=== PATIENT | female | born 1955 | race Caucasian/White ===

== ENCOUNTER 2023-11-29 14:38 | Outpatient (AMB) | payer OTHER, SELFPAY ==
--- NOTE | 2023-11-29 14:50 | HO.NEPHOV ---
HPI HPI Comments History of Present Illness Details I had the privilege of seeing Shannan in follow-up of her chronic kidney disease and hypertension. She had lost some weight but gained it back during holiday season. Her blood pressure is at goal at home. She does not have any urinary symptoms, pedal edema, nausea vomiting, diarrhea, shortness of breath or orthostatic symptoms. She does not take any nonsteroidal anti-inflammatories. She is trying to lose some weight by dieting. She had no recent medication changes. All other systems have been reviewed and were negative. [facility] Medical History (Updated 11/29/23 @ 15:48 by Doroteo Reyes MD) Chronic kidney disease, stage 3a Hypertension Surgical History (Updated 11/29/23 @ 14:57 by Chanell Alvarado MA) History of foot surgery Family History (Updated 11/29/23 @ 14:58 by Chanell Alvarado MA) Maternal Uncle Diabetes Mother Hepatitis B Social History (Updated 11/29/23 @ 14:58 by Chanell Alvarado MA) Alcohol intake: never Patient Tobacco Use Status: Former Tobacco user Vital Signs 11/29/23 14:53 Height 5 ft 3 in Weight 165 lb 4 oz BMI 29.3 BP 140/70 H Blood Pressure Location Rt brachial Position Sitting Pulse 70 Pulse Source Pulse Oximeter Pulse Oximetry (%) 99 Oxygen Delivery Method Room Air Physical Exam Vital Signs: Last Vital Signs Pulse 70 11/29/23 14:53 BP 140/70 H 11/29/23 14:53 Pulse Ox 99 11/29/23 14:53 Oxygen Delivery Method Room Air 11/29/23 14:53 BMI result Body Mass Index 29.3 Const General: comfortable and no acute distress Orientation/consciousness: patient oriented x3 HEENT Head: Yes normocephalic Mouth: Normal oral and palatal mucosa present Eyes EOM: EOMs intact bilaterally Neck Neck: Yes supple Resp Auscultation: clear to auscultation bilaterally Cardio Jugular venous distension: no JVD Rate: regular rate GI Palpation (GI): Soft to palpation Auscultation: normal bowel sounds General: Yes no CVA tenderness Back/Spine/Pelvis Back: no CVA tenderness Skin General skin exam: no rashes or lesions noted Neuro General: patient oriented x3 and moves all extremities Extrem General: Yes no pedal edema Assessment & Plan Assessment & Plan (1) Chronic kidney disease, stage 3a: Code(s): N18.31 - Chronic kidney disease, stage 3a (2) Hypertension: Code(s): I10 - Essential (primary) hypertension Plan Shannan has CKD for some time. All the workup for CKD has been negative to date. She is hypertensive. She has history of COVID in 2019 and has serum creatinine had gone up since but plateaued now. She never had a renal biopsy he at even though it has been discussed many a times. She avoids nonsteroidal anti-inflammatories and maintain good hydration. She potentially is a candidate for CARIN inhibitor and/orSGLT2 i in the future. I did not make any medication changes today. Follow-up blood work ordered. Answered all questions. Follow-up appointment given. Orders: Orders Creatinine Today I10 - Essential (primary) hypertension, N18.31 - Chronic kidney disease, stage 3a Vitamin D 25-OH Total Today I10 - Essential (primary) hypertension, N18.31 - Chronic kidney disease, stage 3a Parathyroid Hormone Intact Today I10 - Essential (primary) hypertension, N18.31 - Chronic kidney disease, stage 3a Electrolytes Today I10 - Essential (primary) hypertension, N18.31 - Chronic kidney disease, stage 3a Blood Urea Nitrogen Today I10 - Essential (primary) hypertension, N18.31 - Chronic kidney disease, stage 3a Medications: New amlodipine 5 mg PO DAILY 90 tabs 3RF 90 days Coding Level of Care Code Est Pt Level 4 (12904) Diagnoses Chronic kidney disease, stage 3a N18.31 Hypertension I10 Results Reviewed Nephrology Results: No Data to Display
[2023-11-29 14:53] VITALS: BP 140/70; PULSE 70; O2SAT 99; BMI 29.3
== END 2023-11-29 16:01 | disposition home or self-care (01) ==
PROVIDERS: Visit Provider Internal Medicine Nephrology
DX: N18.31 Chronic kidney disease, stage 3a (principal); I10 Essential (primary) hypertension
CPT/HCPCS: 99214

== ENCOUNTER → 2023-11-29 14:38 | Outpatient (BNVA) | payer OTHER, SELFPAY | PROVIDERS: Visit Provider Internal Medicine Nephrology ==

== ENCOUNTER → 2024-07-24 13:56 | Outpatient (BNVA) | payer OTHER, SELFPAY | PROVIDERS: Visit Provider Internal Medicine Nephrology ==

== ENCOUNTER 2024-07-24 14:04 | Outpatient (AMB) | payer OTHER, SELFPAY ==
[2024-07-24 14:06] VITALS: BP 130/80; PULSE 69; O2SAT 99; BMI 30.1
--- NOTE | 2024-07-24 14:06 | HO.NEPHOV_ITS ---
Vital Signs 07/24/24 14:06 Height 5 ft 3 in Weight 170 lb 2 oz BMI 30.1 BP 130/80 Blood Pressure Location Lt brachial Position Sitting Pulse 69 Pulse Source Pulse Oximeter Pulse Oximetry (%) 99 Oxygen Delivery Method Room Air Intake Visit Reasons: CKD- Conf Party Plan Dealer Required: No Accompanied by: Self / Same As Patient Allergies No Known Allergies Allergy (Verified 07/24/24 14:10) HPI Comments Details: I had the privilege of seeing Shannan in follow-up of her chronic kidney disease and hypertension. Her blood pressure is at goal at home. She does not have any urinary symptoms, pedal edema, nausea vomiting, diarrhea, shortness of breath or orthostatic symptoms. She does not take any nonsteroidal anti-inflammatories. She is trying to lose some weight by dieting. She had no recent medication changes. All other systems have been reviewed and were negative [facility] Medical History (Updated 07/24/24 @ 21:10 by Doroteo Reyes MD) Chronic kidney disease, stage 3a Hypertension Surgical History History of foot surgery Family History Maternal Uncle Diabetes Mother Hepatitis B Social History Alcohol intake: never Patient Tobacco Use Status: Former Tobacco user Review of Systems Const All systems reviewed & are unremarkable except as noted in HPI and below Physical Exam Vital Signs: Last Vital Signs Pulse 69 07/24/24 14:06 BP 130/80 07/24/24 14:06 Pulse Ox 99 07/24/24 14:06 Oxygen Delivery Method Room Air 07/24/24 14:06 BMI result Body Mass Index 30.1 Const General: comfortable and no acute distress Orientation/consciousness: patient oriented x3 HEENT Head: Yes normocephalic Mouth: Normal oral and palatal mucosa present Eyes EOM: EOMs intact bilaterally Neck Neck: Yes supple Resp Auscultation: clear to auscultation bilaterally Cardio Jugular venous distension: no JVD Rate: regular rate GI Palpation (GI): Soft to palpation Auscultation: normal bowel sounds General: Yes no CVA tenderness Back/Spine/Pelvis Back: no CVA tenderness Skin General skin exam: no rashes or lesions noted Neuro General: patient oriented x3 and moves all extremities Extrem General: Yes no pedal edema Results Reviewed Nephrology Results: No Data to Display Assessment & Plan Assessment & Plan (1) Hypertension: Code(s): I10 - Essential (primary) hypertension Category: Medical Qualifiers: Hypertension type: primary hypertension Qualified Code(s): I10 - Essential (primary) hypertension (2) Chronic kidney disease, stage 3a: Code(s): N18.31 - Chronic kidney disease, stage 3a Category: Medical Plan Shannan has CKD for some time. All the workup for CKD has been negative to date. She is hypertensive. She has history of COVID in 2019 and has serum creatinine had gone up since but plateaued now. She never had a renal biopsy he at even though it has been discussed many a times. She avoids nonsteroidal anti-inflammatories and maintain good hydration. She potentially is a candidate for CARIN inhibitor and/orSGLT2 i in the future. I increased her Amlodipine to 7.5 mg daily to keep her BP at goal. Follow-up blood work ordered. Answered all questions. Follow-up appointment given Orders: Orders Blood Urea Nitrogen Today I10 - Essential (primary) hypertension, N18.31 - Chronic kidney disease, stage 3a Creatinine 6 Months I10 - Essential (primary) hypertension, N18.31 - Chronic kidney disease, stage 3a Electrolytes 6 Months I10 - Essential (primary) hypertension, N18.31 - Chronic kidney disease, stage 3a Creatinine Today I10 - Essential (primary) hypertension, N18.31 - Chronic kidney disease, stage 3a Electrolytes Today I10 - Essential (primary) hypertension, N18.31 - Chronic kidney disease, stage 3a Blood Urea Nitrogen 6 Months I10 - Essential (primary) hypertension, N18.31 - Chronic kidney disease, stage 3a Medications: Changed From amlodipine 5 mg PO DAILY 90 days 90 tabs 3RF To amlodipine 7.5 mg (1.5 x 5 mg) PO DAILY 90 days 135 tabs 3RF Coding Level of Care Code Est Pt Level 4 (31647) Diagnoses Primary hypertension I10 Hypertension type: primary hypertension Chronic kidney disease, stage 3a N18.31
== END 2024-07-24 15:03 | disposition home or self-care (01) ==
PROVIDERS: Visit Provider Internal Medicine Nephrology
DX: I10 Essential (primary) hypertension (principal); N18.31 Chronic kidney disease, stage 3a
CPT/HCPCS: 99214

== ENCOUNTER 2025-01-29 13:32 | Outpatient (AMB) | payer OTHER, SELFPAY ==
--- NOTE | 2025-01-29 13:39 | HO.NEPHOV_ITS ---
Vital Signs 01/29/25 13:40 Height 5 ft 3 in Weight 144 lb 2 oz BMI 25.5 BP 134/84 Blood Pressure Location Rt brachial Position Sitting Intake Visit Reasons: 6mon follow up-Conf Wooden Fence Erector Required: No Accompanied by: Self / Same As Patient Allergies No Known Allergies Allergy (Verified 01/29/25 13:40) HPI Comments Details: Shannan was seen in follow-up of her chronic kidney disease and hypertension. Her blood pressure is at goal at home. She does not have any urinary symptoms, pedal edema, nausea vomiting, diarrhea, shortness of breath or orthostatic symptoms. She does not take any nonsteroidal anti-inflammatories. She has lost some weight by dieting. She had no recent medication changes. All other systems have been reviewed and were negative [facility] Medical History (Updated 07/24/24 @ 21:10 by Doroteo Reyes MD) Chronic kidney disease, stage 3a Hypertension Surgical History History of foot surgery Family History Maternal Uncle Diabetes Mother Hepatitis B Social History Alcohol intake: never Patient Tobacco Use Status: Former Tobacco user Review of Systems Const All systems reviewed & are unremarkable except as noted in HPI and below Physical Exam Vital Signs: Last Vital Signs BP 134/84 01/29/25 13:40 BMI result Body Mass Index 25.5 Const General: comfortable and no acute distress Orientation/consciousness: patient oriented x3 HEENT Head: Yes normocephalic Mouth: Normal oral and palatal mucosa present Eyes EOM: EOMs intact bilaterally Neck Neck: Yes supple Resp Auscultation: clear to auscultation bilaterally Cardio Jugular venous distension: no JVD Rate: regular rate Heart sounds: Murmur heart sound present GI Palpation (GI): Soft to palpation Auscultation: normal bowel sounds Neuro General: patient oriented x3 and moves all extremities Extrem General: Yes no pedal edema Results Reviewed Nephrology Results: No Data to Display Assessment & Plan Assessment & Plan (1) Chronic kidney disease, stage 3a: Code(s): N18.31 - Chronic kidney disease, stage 3a Category: Medical (2) Hypertension: Code(s): I10 - Essential (primary) hypertension Category: Medical Qualifiers: Hypertension type: primary hypertension Qualified Code(s): I10 - Essential (primary) hypertension Plan Shannan has CKD for some time. All the workup for CKD has been negative to date. She is on Amlodipine 7.5 mg daily to keep her BP at goal but shall back off on it if she continues to lose more weight. She has history of COVID in 2019 and has serum creatinine had gone up since but plateaued now. She never had a renal biopsy he at even though it has been discussed many a times. She a voids nonsteroidal anti-inflammatories and maintain good hydration. She is a great candidate for SGLT2 i . Follow-up blood work ordered. Answered all questions. Follow-up appointment given Orders: Orders Creatinine 6 Months I10 - Essential (primary) hypertension, N18.31 - Chronic kidney disease, stage 3a Complete Blood Count Auto Diff 6 Months I10 - Essential (primary) hypertension, N18.31 - Chronic kidney disease, stage 3a IRON PROFILE 6 Months I10 - Essential (primary) hypertension, N18.31 - Chronic kidney disease, stage 3a Vitamin D 25-OH Total 6 Months I10 - Essential (primary) hypertension, N18.31 - Chronic kidney disease, stage 3a Parathyroid Hormone Intact 6 Months I10 - Essential (primary) hypertension, N18.31 - Chronic kidney disease, stage 3a Blood Urea Nitrogen 6 Months I10 - Essential (primary) hypertension, N18.31 - Chronic kidney disease, stage 3a Electrolytes 6 Months I10 - Essential (primary) hypertension, N18.31 - Chronic kidney disease, stage 3a Calcium 6 Months I10 - Essential (primary) hypertension, N18.31 - Chronic kidney disease, stage 3a Ferritin 6 Months I10 - Essential (primary) hypertension, N18.31 - Chronic kidney disease, stage 3a Coding Level of Care Code Est Pt Level 4 (22035) Diagnoses Chronic kidney disease, stage 3a N18.31 Primary hypertension I10 Hypertension type: primary hypertension
[2025-01-29 13:40] VITALS: BP 134/84; BMI 25.5
--- OUTSIDE RECORDS SUMMARY | 2025-01-29 15:58 | XMS_ITS | Data Portability ---
Author Organization [facility] Address [address] [place] [address] Assessment No assessment recorded. Plan of Treatment Reminders Order Date Submit Date Provider Last Modified By Organization Details Last Modified Time Details Appointments None recorded. Lab rapid SARS CoV 2 Ag, QL IA, respiratory specimen 2022 023 [email or web address] [email or web address], [address] [place] [address], [phone], 09:44:21 Referral None recorded. Procedures None recorded. Surgeries None recorded. Imaging None recorded. Medication Orders None recorded. Patient TargetsNo targets recorded. Patient Instructions Encounter Date Encounter Id Patient Instructions Last Modified By Organization Details Last Modified Time 11/24/2022 [id number] coronavirus (covid-19): care instructions [place] [id number] Not available 11/24/2022 09:44:21 Reason for Referral None Reported. Results Created Date Observation Date Name Description Value Unit Range Abnormal Flag Note LastModifiedBy Organization Detail LastModifiedTime 11/24/1911/24/2022 rapid SARS CoV 2 Ag, QL IA, respi rator y speci men Unknown Analyte Normal =Negat boogie Not Available [facility] [address] [place] [address], [phone], 11/24/2022 09:37:12 11/24/1911/24/2022 rapid SARS CoV 2 Ag, QL IA, respi rator y speci men Unknown Analyte positi ve Not Available [facility] [address] [place] [address], [phone], 11/24/2022 09:37:12 Result Notes None recorded. Problems Name Problem SNOMED Code Status Onset Date Resolution Date Notes Provider Name and Address Organization Details Recorded Time Hypertensive disorder 89958808 Active 2022 [facility] Watson [facility] 3 09:38:44 Problem Notes None recorded. Medical Equipment None Reported. Allergies No known drug allergies Medications Name Sig Start Date Stop Date Status Note LastModified by Organization Details LastModified Time amlodipine active Not Available Not Av ailable Not Available Vitals Date Recorded Body height Body mass index (BMI) Body weight Oxygen saturation Oxygen saturation in Arterial blood by Pulse oximetry Heart rate Respiratory rate Body temperature Systolic blood pressure Diastolic blood pressure Provider Name and Address Organization Details Last Updated DateTime 3 157.48 cm 28.3 kg/m2 16062.8 2 g 97 % 97 % 88 /min 18 /min 98.8 [degF] 144 mm[Hg] 88 mm[Hg] EULALIO Delgado [facility] 3 09:38:09 Social History Question Answer Notes LastModified by Organizat ion Details LastModified Time Tobacco Smoking Status Former Smoker [facility] Watson [facility] 11/24/2022 09:39:01 What Is Your Level Of Alcohol Consumption? None Information not available 11/24/2022 When Did You Quit Smoking? 18+yearssin [facility] ette [email or web address] Information not available 11/24/2022 Do You Use Any Illicit Or Recreational Drugs? No [email or web address] Information not available 11/24/2022 Have You Recently Traveled Abroad? No [email or web address] Information not available 11/24/2022 Do You Or Have You Ever Used Any Other Forms Of Tobacco Or Nicotine? No [email or web address] Information not available 11/24/2022 Sex: Unknown Functional Status None recorded. Mental Status None recorded. Family History Relationship Description Onset Age of this Age Resolved Age Notes LastModified by Organization Details LastModified Time Father No current problems or disability [email or web address] Not available 11/24 09:38:47 Mother No current problems or disability [email or web address] Not available 11/24 09:38:47 Medical History No medical history recorded. Gynecological HistoryNo gynecological history recorded. Obstetrics History GPAL:G 0 P 0 0 0 0 Past Encounters Encounter ID Performer Location Encounter Start Date Encounter Closed Date Diagnosis/Indication Diagnosis SNOMED-CT Code Diagnosis ICD10 Code Diagnosis Note [id number] [address] [place] [id number] 06/25/2022 11:33:11 06/25/2022 15:21:10 [id number] Patricia Fraser MD [address] [address] [address] 11/24/2022 09:16:35 11/24/2022 10:03:46 COVID-19 [id number] U07.1 If you test positive for COVID-19, stay home for at least 5 days and isolate from others in your home.?You are likely most infectious during these first 5 days. ?Wear a high-quali ty mask if you must be around others at home and in public.Do not go places where you are unable to wear a mask. For travel guidance, see [facility]? s Travel webpage.Do not travel.Sta y home and separate from others as much as possible.U se a separate bathroom, if possible.T malgorzata steps to improve ventilatio n at home, if possible.D on? t share personal household items, like cups, towels, and utensils.M onitor your symptoms. If you have an emergency warning sign (like trouble breathing) , seek emergency medical care immediatel y. If you had symptoms and:Your symptoms are improvingY ou may end isolation after day 5 if:?Y ou are fever-free for 24 hours (without the use of fever-redu cing medication ).Your symptoms are not improving Continue to isolate until:?You are fever-free for 24 hours (without the use of fever-redu cing medication ).Your symptoms are improving. ?Rega rdless of when you end isolationU ntil at least day 11:Avoid being around people who are more likely to get very sick from COVID-19.R emember to wear a high-quali ty mask when indoors around others at home and in public.Do not go places where you are unable to wear a mask until you are able to discontinu e masking (see below).For travel guidance, see CDC? s Travel webpage. Health Concerns Section Related Observation LastModified by Organization Detai ls LastModified Time None Recorded Concern Status LastModified by Organization Details LastModified Time None Recorded Advance Directives Directive None Recorded Payers Encounter Date Sequence Insurance Name Policy Number Policy Francis Covered Member ID Francis Member ID Guarantor Name 06/25/2022 1 [facility] [id number] 3 Shannan Enriquez [id number] Shannan Enriquez 11/24/2022 1 [facility] [id number] 3 Shannan Enriquez [id number] Shannan Enriquez Notes Date Note Type Note Provider Name and Address Organization Details Recorded Time 11/24/2022 text/html CoughReported bypatient.Quality:p roductive cough Severity:moderate Associated Symptoms:no chest pain; no vomiting;chills;inna sea Patricia Fraser MD [facility] [place], [address], [place] - [facility] 11/24/2022 10:03:16 OBGyn Episode No OBEpisode recorded.
--- OUTSIDE RECORDS SUMMARY | 2025-01-29 15:59 | XMS_ITS | Clinical Summary ---
Author Organization [facility] Address [address] [place] [address] Phone Care Team Providers Care Cloth Opener Hand Name Role Phone Lis Lynn NP Primary Care Provider Allergies No known active allergies Medications fluticasone (FLONASE) 50 MCG/ACT nasal spray 04/12/2021 Active folic acid (FOLVITE) 800 MCG tablet Take 800 mcg by mouth 1 (one) time each day Active amLODIPine (NORVASC) 5 MG tablet TAKE ONE TABLET BY MOUTH ONCE DAILY 90 tablet 3 12/07/2022 Active Active Problems Problem Noted Date Diagnosed Date Hypertension 02/09/2022 Stage 3a chronic kidney disease 04/14/2021 Essential hypertension 04/14/2021 Hypertensive renal disease 04/14/2021 Family History Medical History Relation Comments Hypertension Sibling 1 Heart disease Sibling 2 Relation Status Comments Father Mother Sibling 1 Sibling 2 Social History Tobacco Use Types Packs/Day Years Used Date Smoking Tobacco: Former Smokeless Tobacco: Former Alcohol Use Standard Drinks/Week Comments Yes 0 (1 standard drink = 0.6 oz pure alcohol) Alcoholic Drinks/day: Occasional social drink Comments Unknown Sex and Gender Information Value Date Recorded Sex Assigned at Not on file Legal Sex Female 4:51 PM EST Gender Identity Not on file Sexual Orientation Not on file Last Filed Vital Signs Vital Sign Reading Time Taken Comments Blood Pressure 130/80 05/10/2023 4:19 PM EDT Pulse 80 05/10/2023 4:19 PM EDT Temperature - - Respiratory Rate - - Oxygen Saturation 98% 05/10/2023 4:19 PM EDT Inhaled Oxygen Concentration - - Weight 73.3 kg (161 lb 9.6 oz) 05/10/2023 4:19 P M EDT Height 157.5 cm (5' 2 ) 05/10/2023 4:19 PM EDT Body Mass Index 29.56 05/10/2023 4:19 PM EDT Plan of Treatment Health Maintenance Due Date Last Done Comments Breast Cancer Screening 1955 Pneumococcal Vaccine: 65+ Ye ars (1 of 2 - PCV) 1963 Colorectal Cancer Screening: Annual FOBT 2006 Colorectal Cancer Screening: Colonoscopy 2006 Colorectal Cancer Screening: Sigmoidoscopy 2006 Influenza Vaccine (#1) 2024 09/04/2019 Hepatitis B Vaccine Aged Out No longe r eligible based on patient's age to complete this topic Insurance [facility] Care Teams Cloth Opener Hand Relationship Specialty Start Date End Date Lis Lynn NP [facility] [address] [place] [address] PCP - General 11/30/20
== END 2025-01-29 13:57 | disposition home or self-care (01) ==
LOC: HO.HKA 13:33
PROVIDERS: Visit Provider Internal Medicine Nephrology
DX: N18.31 Chronic kidney disease, stage 3a (principal); I10 Essential (primary) hypertension
CPT/HCPCS: 99214

== ENCOUNTER 2025-07-16 11:18 | Outpatient (AMB) | payer OTHER, SELFPAY ==
--- OUTSIDE RECORDS SUMMARY | 2025-07-16 12:11 | XMS_ITS | Clinical Summary ---
Author Organization [facility] Address [address] [place] [address] Phone Care Team Providers Care Spectrographic Analyst Name Role Phone Lis Lynn NP Primary [...] Comments Breast Cancer Screening 1955 Pneumococcal Vaccine: 50+ Years (1 of 2 - PCV) 1976 Colorectal Cancer Screening: Annual FOBT 2006 Colorectal Cancer Screening: Colonoscopy 2006 Colorectal Cancer Screening: Sigmoidoscopy 2006 Influenza Vaccine (#1) 2025 9, 09/02/2010 Hepatitis B Vaccine Aged Out No longe r eligible based on patient's age to complete this topic Insurance [facility] Care Teams Spectrographic Analyst Relationship Specialty Start Date End Date Lis Lynn NP [facility] [address] [place] [address] PCP - General 11/30/20
== END 2025-07-16 11:23 | disposition home or self-care (01) ==
LOC: HO.HMGAL 11:18
PROVIDERS: PCP Nurse Practitioner Adult Health; Visit Provider Registered Nurse Emergency
DX: J30.89 Other allergic rhinitis (principal)
CPT/HCPCS: 95117; 95165

== ENCOUNTER 2025-08-01 11:06 | Outpatient (AMB) | payer OTHER, SELFPAY ==
--- NOTE | 2025-08-01 11:09 | HO.NEPHOV ---
Vital Signs 08/01/25 11:10 Height 5 ft 3 in Weight 152 lb 2 oz BMI 26.9 BP 140/80 H Blood Pressure Location Rt brachial Position Sitting Pulse 70 Pulse Source Pulse Oximeter Pulse Oximetry (%) 98 Oxygen Delivery Method Room Air Intake Visit Reasons: 6 MO FU-[facility] Human Factors Specialist Required: No Accompanied by: Self / Same As Patient Allergies No Known Allergies Allergy (Verified 08/01/25 11:10) HPI Comments Details: Shannan was seen in follow-up of her chronic kidney disease and hypertension. Her blood pressure is at goal at home. She does not have any urinary symptoms, pedal edema, nausea vomiting, diarrhea, shortness of breath or orthostatic symptoms. She does not take any nonsteroidal anti-inflammatories. She has lost some weight. She had no recent medication changes. All other systems have been reviewed and were negative [facility] Medical History (Updated 07/24/24 @ 21:10 by Doroteo Reyes MD) Chronic kidney disease, stage 3a Hypertension Surgical History History of foot surgery Family History Maternal Uncle Diabetes Mother Hepatitis B Social History Alcohol intake: never Patient Tobacco Use Status: Former Tobacco user Review of Systems Const All systems reviewed & are unremarkable except as noted in HPI and below Physical Exam Vital Signs: Last Vital Signs Pulse 70 08/01/25 11:10 BP 140/80 H 08/01/25 11:10 Pulse Ox 98 08/01/25 11:10 Oxygen Delivery Method Room Air 08/01/25 11:10 BMI result Body Mass Index 26.9 Const General: comfortable and no acute distress Orientation/consciousness: patient oriented x3 HEENT Head: Yes normocephalic Mouth: Normal oral and palatal mucosa present Eyes EOM: EOMs intact bilaterally Neck Neck: Yes supple Resp Auscultation: clear to auscultation bilaterally Cardio Jugular venous distension: no JVD Rate: regular rate GI Palpation (GI): Soft to palpation Auscultation: normal bowel sounds General: Yes no CVA tenderness Back/Spine/Pelvis Back: no CVA tenderness Skin General skin exam: no rashes or lesions noted Neuro General: patient oriented x3 and moves all extremities Extrem General: Yes no pedal edema Assessment & Plan Assessment & Plan (1) Chronic kidney disease, stage 3a: Code(s): N18.31 - Chronic kidney disease, stage 3a Category: Medical (2) Hypertension: Code(s): I10 - Essential (primary) hypertension Category: Medical Qualifiers: Hypertension type: primary hypertension Qualified Code(s): I10 - Essential (primary) hypertension Plan Shannan has CKD for some time. All the workup for CKD has been negative to date. She is on Amlodipine 7.5 mg daily to keep her BP at goal but shall back off on it if she continues to lose more weight. She has history of COVID in 2019 and has serum creatinine had gone up since but plateaued now. She never had a renal biopsy he at even though it has been discussed many a times. She avoids nonsteroidal anti-inflammatories and maintain good hydration. She is a great candidate for SGLT2 i . I started her on Jardiance 10 mg daily . Follow-up blood work ordered. Answered all questions. Follow-up appointment given Orders: Orders Creatinine 3 Months I10 - Essential (primary) hypertension, N18.31 - Chronic kidney disease, stage 3a Blood Urea Nitrogen 3 Months I10 - Essential (primary) hypertension, N18.31 - Chronic kidney disease, stage 3a Electrolytes 3 Months I10 - Essential (primary) hypertension, N18.31 - Chronic kidney disease, stage 3a Medications: New empagliflozin (Jardiance) 10 mg PO DAILY 30 tabs 3RF Coding Level of Care Code Est Pt Level 4 (86823) Diagnoses Chronic kidney disease, stage 3a N18.31 Primary hypertension I10 Hypertension type: primary hypertension
[2025-08-01 11:10] VITALS: BP 140/80; PULSE 70; O2SAT 98; BMI 26.9
--- OUTSIDE RECORDS SUMMARY | 2025-08-01 13:01 | XMS_ITS | Clinical Summary ---
Author Organization [facility] Address [address] [place] [address] Phone Care Team Providers Care Route Deliverer Name Role Phone Lis Lynn NP Primary [...] patient's age to complete this topic Insurance [facility] Care Teams Route Deliverer Relationship Specialty Start Date End Date Lis Lynn NP [facility] [address] [place] [address] PCP - General 11/30/20
== END 2025-08-01 11:52 | disposition home or self-care (01) ==
LOC: HO.HKA 11:06
PROVIDERS: Visit Provider Internal Medicine Nephrology
DX: N18.31 Chronic kidney disease, stage 3a (principal); I10 Essential (primary) hypertension
CPT/HCPCS: 99214

== ENCOUNTER 2025-08-06 15:40 | Outpatient (AMB) | payer OTHER, SELFPAY ==
--- OUTSIDE RECORDS SUMMARY | 2025-08-06 19:02 | XMS_ITS | Clinical Summary ---
Author Organization [facility] Address [address] [place] [address] Phone Care Team Providers Care Aids Counselor Name Role Phone Lis Lynn NP Primary [...] patient's age to complete this topic Insurance [facility] Care Teams Aids Counselor Relationship Specialty Start Date End Date Lis Lynn NP [facility] [address] [place] [address] PCP - General 11/30/20
== END 2025-08-06 15:44 | disposition home or self-care (01) ==
LOC: HO.HMGAL 15:40
PROVIDERS: PCP Internal Medicine; Visit Provider Registered Nurse Emergency
DX: J30.89 Other allergic rhinitis (principal)
CPT/HCPCS: 95117; 95165

== ENCOUNTER 2025-08-27 15:35 | Outpatient (AMB) | payer OTHER, SELFPAY | END 2025-08-27 15:35 | disposition home or self-care (01) | LOC: HO.HMGAL 15:35 | PROVIDERS: PCP Internal Medicine; Visit Provider Registered Nurse Emergency | DX: J30.89 Other allergic rhinitis (principal) | CPT/HCPCS: 95117; 95165 ==

== ENCOUNTER 2025-09-24 15:47 | Outpatient (AMB) | payer OTHER, SELFPAY ==
--- OUTSIDE RECORDS SUMMARY | 2025-09-24 18:33 | XMS_ITS | Clinical Summary ---
Author Organization [facility] Address [address] [place] [address] Phone Care Team Providers Care Correspondence Specialist Name Role Phone Lis Lnyn NP Primary Care Provider Allergies No known [...] patient's age to complete this topic Insurance [facility] Care Teams Correspondence Specialist Relationship Specialty Start Date End Date Lis Lynn NP [facility] [address] [place] [address] PCP - General 11/30/20
--- OUTSIDE RECORDS SUMMARY | 2025-09-24 18:33 | XMS_ITS | Data Portability ---
Author Organization [facility] Address [address] [place] [address] Assessment No assessment recorded. Plan of Treatment Reminders Order Date Submit Date Provider Last Modified By Organization Details Last Modified Time Details Appointments None recorded. Lab rapid SARS CoV 2 Ag, QL IA, respiratory specimen 2022 023 [email or web address] _[facility], [address] [place] [address], [phone], 09:44:21 Referral None recorded. Procedures None recorded. Surgeries None recorded. Imaging None recorded. Medication Orders None recorded. Patient TargetsNo targets recorded. Patient Instructions Encounter Date Encounter Id Patient Instructions Last Modified By Organization Details Last Modified Time 11/24/2022 [id number] coronavirus (covid-19): care instructions [place] [id number] Not available 11/24/2022 09:44:21 Reason for Referral None Reported. Results Created Date Observation Date Name Description Value Unit Range Abnormal Flag Note LastModifiedBy Organization Detail LastModifiedTime 11/24/1911/24/2022 rapid SARS CoV 2 Ag, QL IA, respi rator y speci men Unknown Analyte Normal =Negat boogie Not Available [facility] [address] [place] [address], [phone], 11/24/2022 09:37:12 11/24/1911/24/2022 rapid SARS CoV 2 Ag, QL IA, respi rator y speci men Unknown Analyte positi ve Not Available jose ramon pe [address], [address], 11/24/2022 09:37:12 Result Notes None recorded. Problems Name Problem SNOMED Code Status Onset Date Resolution Date Notes Provider Name and Address Organization Details Recorded Time Hypertensive disorder 33385040 Active 2022 REX Watson [facility] 3 09:38:44 Problem Notes None recorded. [...] Heart rate Respiratory rate Body temperature Systolic And Diastolic Provider Name and Address Organization Details Last Updated DateTime 3 157.48 cm 28.3 kg/m2 10006.8 2 g 97 % 97 % 88 /min 18 /min 98.8 [degF] 144/88 mm[Hg] EULALIO Delgado [facility] 3 09:38:09 Social History Question Answer Notes LastModified by [employer] Details LastModified Time Tobacco Smoking Status Former Smoker REX Watson [facility] 11/24/2022 09:39:01 When Did You Quit Smoking? 16+yearssinc elastcigaret te [email or web address] Information not available 11/24/2022 Have You Recently Traveled Abroad? No [email or web address] Information not available 11/24/2022 Sex: Unknown Functional Status Question Answer Note LastModified by [employer] Details LastModified Time Do you use any illicit or recreational drugs? No [email or web address] Information not available 11/24/2022 Do you or have you ever used any other forms of tobacco or nicotine? No [email or web address] Information not available 11/24/2022 What is your level of alcohol consumption? None [email or web address] Information not available 11/24/2022 Mental Status None recorded. Family History Relationship Description Onset Age of this Age Resolved Age Notes LastModified by Organization Details LastModified Time Father No current problems or disability [email or web address] Not available 11/24 09:38:47 Mother No current problems or disability [email or web address] Not available 11/24 09:38:47 Medical History No medical history recorded. Gynecological HistoryNo gynecological history recorded. Obstetrics History GPAL:G 0 P 0 0 0 0 Past Encounters Encounter ID Performer Location Encounter Start Date Encounter Closed Date Diagnosis/Indication Diagnosis SNOMED-CT Code Diagnosis ICD10 Code Diagnosis IMO Codes Diagnosis [id number] [facility] [address] [place] [address] 06/25/2022 11:33:11 06/25/2022 15:21:10 [id number] [place] [address] [address] [place] [address] 11/24/2022 09:16:35 11/24/2022 10:03:46 COVID-19 159367280 U07.1 If you test positive for COVID-19, stay home for at least 5 days and isolate from others in your home. Y ou are likely most infectious during these first 5 days. W ear a high-quali ty mask if you must be around others at home and in public.Do not go places where you are unable to wear a mask. For travel guidance, see CDC s Travel webpage.Do not travel.Sta y home and separate from others as much as possible.U se a separate bathroom, if possible.T malgorzata steps to improve ventilatio n at home, if possible.D on t share personal household items, like cups, towels, and utensils.M onitor your symptoms. If you have an emergency warning sign (like trouble breathing) , seek emergency medical care immediatel y. If you had symptoms and:Your symptoms are improvingY ou may end isolation after day 5 if: Y ou are fever-free for 24 hours (without the use of fever-redu cing medication ).Your symptoms are not improving Continue to isolate until: Y ou are fever-free for 24 hours (without the use of fever-redu cing medication ).Your symptoms are improving. R egardless of when you end isolationU ntil at least day 11:Avoid being around people who are more likely to get very sick from COVID-19.R emember to wear a high-quali ty mask when indoors around others at home and in public.Do not go places where you are unable to wear a mask until you are able to discontinu e masking (see below).For travel guidance, see CDC s Travel webpage. Health Concerns Section Related Observation LastModified by Organization Detai ls LastModified Time None Recorded Concern Status LastModified by Organization Details LastModified Time None Recorded Advance Directives Directive None Recorded Payers Insurance Date Sequence Insurance Name Policy Number Policy Francis Covered Member ID Francis Member ID Guarantor Name 11/24/2022 1 [facility] [id number] 3 Shannan Enriquez [id number] Shannan Enriquez Notes Date Note Type Note Provider Name and Address Organization Details Recorded Time 11/24/19 23 text/htm l CoughReported by PatientHPIFor quality, patient reportsproductive cough. For associated symptoms, patient reportschillsandnauseabut reportsno chest painandno vomiting. For severity, patient reportsmoderate. Patricia Fraser MD [facility] [place], [address], [place] - [facility] 11/24/2022 10:03:16 OBGyn Episode No OBEpisode recorded.
== END 2025-09-24 15:47 | disposition home or self-care (01) ==
LOC: HO.HMGAL 15:47
PROVIDERS: PCP Internal Medicine; Visit Provider Registered Nurse Emergency
DX: J30.89 Other allergic rhinitis (principal)
CPT/HCPCS: 95117; 95165

== ENCOUNTER 2025-10-22 16:05 | Outpatient (AMB) | payer OTHER, SELFPAY ==
--- OUTSIDE RECORDS SUMMARY | 2025-10-22 18:50 | XMS_ITS | Data Portability ---
Author Organization [facility] Address [address] [place] [address] Assessment No assessment recorded. Plan of Treatment Reminders Order Date Submit Date Provider Last Modified By Organization Details Last Modified Time Details Appointments None recorded. Lab rapid SARS CoV 2 Ag, QL IA, respiratory specimen 2022 023 [email or web address] _[facility], [address] [place] [address], [phone], 09:44:21 Referral None recorded. Procedures None recorded. Surgeries None recorded. Imaging None recorded. Medication Orders None recorded. Patient TargetsNo targets recorded. Patient Instructions Encounter Date Encounter Id Patient Instructions Last Modified By Organization Details Last Modified Time 11/24/2022 [id number] coronavirus (covid-19): care instructions [place] [id number] Not available 11/24/2022 09:44:21 Reason for Referral None Reported. Results Created Date Observation Date Name Description Value Unit Range Abnormal Flag Note LastModifiedBy Organization Detail LastModifiedTime 11/24/1911/24/2022 rapid SARS CoV 2 Ag, QL IA, respi rator y speci men Unknown Analyte Normal =Negat boogie Not Available [facility] [address] [place] [address], [phone], 11/24/2022 09:37:12 11/24/1911/24/2022 rapid SARS CoV 2 Ag, QL IA, respi rator y speci men Unknown Analyte positi ve Not Available jose ramon pe [address], [phone], 11/24/2022 09:37:12 Result Notes None recorded. Problems Name Problem SNOMED Code Status Onset Date Resolution Date Notes Provider Name and Address Organization Details Recorded Time Hypertensive disorder 57476438 Active 2022 EULALIO arias [facility] 09:38:44 Problem Notes None recorded. Medical Equipment None Reported. Allergies No known drug allergies Medications Name Sig Start Date Stop Date Status Note LastModified by Organization Details LastModified Time amlodipine active Not Available Not Av ailable Not Available Vitals Date Recorded Body height Body mass index (BMI) Body weight Oxygen saturation Heart rate Respiratory rate Body temperature Systolic And Diastolic Provider Name and Address Organization Details Last Updated DateTime 3 157.48 cm 28.3 kg/m2 51899.8 2 g 97 % 88 /min 18 /min 98.8 [degF] 144/88 mm[Hg] EULALIO GOODMAN [facility] 3 09:38:09 Social History Question Answer Notes LastModified by [employer] Details LastModified Time Tobacco Smoking Status Former Smoker EULALIO JUARES hugo [facility] 11/24/2022 09:39:01 When Did You Quit Smoking? 16+yearssinc elastcigaret te [email or web address] Information not available 11/24/2022 Have You Recently Traveled Abroad? No [email or web address] Information not available 11/24/2022 Sex: Unknown Functional Status Question Answer Note LastModified by [employer] Details LastModified Time Do you use any illicit or recreational drugs? No [email or web address] Information not available 11/24/2022 Do you or have you ever used any other forms of tobacco or nicotine? No [email or web address] Information not available 11/24/2022 What is your level of alcohol consumption? None [email or web address] Information not available 11/24/2022 Mental Status None recorded. Family History Relationship Description Onset Age of this Age Resolved Age Notes LastModified by Organization Details LastModified Time Father No current problems or disability [email or web address] Not available 11/24 09:38:47 Mother No current problems or disability [email or web address] Not available 11/24 09:38:47 Medical History No medical history recorded. Gynecological HistoryNo gynecological history recorded. Obstetrics History GPAL:G 0 P 0 0 0 0 Past Encounters Encounter ID Performer Location Encounter Start Date Encounter Closed Date Diagnosis/Indication Diagnosis SNOMED-CT Code Diagnosis ICD10 Code Diagnosis IMO Codes Diagnosis Note [id number] [facility] [address] [place] [address] 06/25/2022 11:33:11 06/25/2022 15:21:10 [id number] Patricia Fraser MD _[facility] [address] [place] [phone] 11/24/2022 09:16:35 11/24/2022 10:03:46 COVID-19 320422742 U07.1 If you test positive for COVID-19, [...] e masking (see below).For travel guidance, see [facility] s Travel webpage. Health Concerns Section Related Observation LastModified by Organization Detai ls LastModified Time None Recorded Concern Status LastModified by Organization Details LastModified Time None Recorded Advance Directives Directive None Recorded Payers Insurance Date Sequence Insurance Name Policy Number Policy Francis Covered Member ID Francis Member ID Guarantor Name 11/24/2022 1 [facility] [id number] Shannan Enriquez [id number] Shannan Enriquez Notes Date Note Type Note Provider Name and Address Organization Details Recorded Time 11/24/19 23 text/htm l CoughReported by PatientHPIFor quality, patient reportsproductive cough. For associated symptoms, patient reportschillsandnauseabut reportsno chest painandno vomiting. For severity, patient reportsmoderate. Patricia Fraser MD [address] [facility] [place], [address], [place] - [facility] 11/24/2022 10:03:16 OBGyn Episode No OBEpisode recorded.
== END 2025-10-22 16:05 | disposition home or self-care (01) ==
LOC: HO.HMGAL 16:05
PROVIDERS: PCP Internal Medicine; Visit Provider Registered Nurse Emergency
DX: J30.89 Other allergic rhinitis (principal)
CPT/HCPCS: 95117; 95165

== ENCOUNTER 2025-10-31 11:14 | Outpatient (AMB) | payer OTHER, SELFPAY ==
--- NOTE | 2025-10-31 11:30 | HO.NEPHOV ---
Vital Signs 10/31/25 11:31 Height 5 ft 3 in Weight 158 lb 4 oz BMI 28.0 BP 140/80 H Blood Pressure Location Lt brachial Position Sitting Pulse 73 Pulse Source Pulse Oximeter Pulse Oximetry (%) 98 Oxygen Delivery Method Room Air Intake Visit Reasons: 3mon f/u w/labs-Conf Associate Property Manager Required: No Accompanied by: Self / Same As Patient Allergies No Known Allergies Allergy (Verified 10/31/25 11:31) HPI Comments Details: Shannan was seen in follow-up of her chronic kidney disease and hypertension. Her blood pressure is at goal at home. She does not have any urinary symptoms, pedal edema, nausea vomiting, diarrhea, shortness of breath or orthostatic symptoms. She does not take any nonsteroidal anti-inflammatories. She has lost some weight. She had no recent medication changes. All other systems have been reviewed and were negative [facility] Medical History (Updated 07/24/24 @ 21:10 by Doroteo Reyes MD) Chronic kidney disease, stage 3a Hypertension Surgical History History of foot surgery Family History Maternal Uncle Diabetes Mother Hepatitis B Social History Alcohol intake: never Patient Tobacco Use Status: Former Tobacco user Review of Systems Const All systems reviewed & are unremarkable except as noted in HPI and below Physical Exam Vital Signs: Last Vital Signs Pulse 73 10/31/25 11:31 BP 140/80 H 10/31/25 11:31 Pulse Ox 98 10/31/25 11:31 Oxygen Delivery Method Room Air 10/31/25 11:31 BMI result Body Mass Index 28.0 Const General: comfortable and no acute distress Orientation/consciousness: patient oriented x3 HEENT Head: Yes normocephalic Mouth: Normal oral and palatal mucosa present Eyes EOM: EOMs intact bilaterally Neck Neck: Yes supple Resp Auscultation: clear to auscultation bilaterally Cardio Jugular venous distension: no JVD Rate: regular rate GI Palpation (GI): Soft to palpation Auscultation: normal bowel sounds General: Yes no CVA tenderness Back/Spine/Pelvis Back: no CVA tenderness Skin General skin exam: no rashes or lesions noted Neuro General: patient oriented x3 and moves all extremities Extrem General: Yes no pedal edema Assessment & Plan Assessment & Plan (1) Chronic kidney disease, stage 3a: Code(s): N18.31 - Chronic kidney disease, stage 3a Category: Medical (2) Hypertension: Code(s): I10 - Essential (primary) hypertension Category: Medical Qualifiers: Hypertension type: primary hypertension Qualified Code(s): I10 - Essential (primary) hypertension Plan Shannan has CKD for some time. All the workup for CKD has been negative to date. She is on Amlodipine 7.5 mg daily to keep her BP at goal but shall back off on it if she continues to lose more weight. She has history of COVID in 2019 and has serum creatinine had gone up since but plateaued now. She never had a renal biopsy he at even though it has been discussed many a times. She avoids nonsteroidal anti-inflammatories and maintain good hydration. She is a great candidate for SGLT2 i . I shall increase Jardiance to 25 mg daily @ next visit . Follow-up blood work ordered. Answered all questions. Follow-up appointment given Orders: Orders Blood Urea Nitrogen 3 Months I10 - Essential (primary) hypertension, N18.31 - Chronic kidney disease, stage 3a Parathyroid Hormone Intact 3 Months I10 - Essential (primary) hypertension, N18.31 - Chronic kidney disease, stage 3a Vitamin D 25-OH Total 3 Months I10 - Essential (primary) hypertension, N18.31 - Chronic kidney disease, stage 3a Complete Blood Count Auto Diff 3 Months I10 - Essential (primary) hypertension, N18.31 - Chronic kidney disease, stage 3a Creatinine 3 Months I10 - Essential (primary) hypertension, N18.31 - Chronic kidney disease, stage 3a Electrolytes 3 Months I10 - Essential (primary) hypertension, N18.31 - Chronic kidney disease, stage 3a Calcium 3 Months I10 - Essential (primary) hypertension, N18.31 - Chronic kidney disease, stage 3a Phosphorus 3 Months I10 - Essential (primary) hypertension, N18.31 - Chronic kidney disease, stage 3a Coding Level of Care Code Est Pt Level 4 (67456) Diagnoses Chronic kidney disease, stage 3a N18.31 Primary hypertension I10 Hypertension type: primary hypertension
[2025-10-31 11:31] VITALS: BP 140/80; PULSE 73; O2SAT 98; BMI 28.0
== END 2025-10-31 11:59 | disposition home or self-care (01) ==
LOC: HO.HKA 11:14
PROVIDERS: Visit Provider Internal Medicine Nephrology
DX: N18.31 Chronic kidney disease, stage 3a (principal); I10 Essential (primary) hypertension
CPT/HCPCS: 99214